=== PATIENT | male | born 1950 | race Caucasian/White ===

== ENCOUNTER 2019-09-24 15:10 | Emergency (ER) | payer BC, OTHER ==
[2019-09-24 15:26] VITALS: BMI 20.3
--- NOTE | 2019-09-24 16:39 | PDOC ---
History of Present Illness - General Chief Complaint: Alcohol intoxication Stated Complaint: INTOX Time Seen by Provider: 09/24/19 15:29 History Source: Patient, Friend - History of Present Illness Initial Comments: 09/24/19 16:32 HPI: 68yo M with history of ETOH abuse and depression transferred from [facility] for medical clearance due to intoxication and urinary and fecal incontinence. As per patient, he had 6 beers this morning around 10am. Patient states he has been binge drinking 6-8 beers per day for the last 2 months due to depression. He states that when he is drunk, he is too weak to go to the bathroom, so just goes in his couch. He states this does not occur so often and only when drunk. Patient states he had a herniated disc in his back, but denies back pain or parasthesias. Patient was confused about how/why he was in the hospital, so his friend was called for corroboration. The friend stated that he called [facility] for detox after finding the patient drunk this morning. PMHX: as in HPI PSHX: hernia repair Meds: klonapin 1mg BID, lexapro Allergies: penicillin Tob: denies Etoh: 6-8 beers per day Rec drugs: denies Lives alone in the [place]. ROS GENERAL/CONSTITUTIONAL: No fever or chills. HEAD, EYES, EARS, NOSE AND THROAT: No change in vision. No ear pain or discharge. No sore throat. CARDIOVASCULAR: No chest pain or shortness of breath RESPIRATORY: No cough, wheezing, or hemoptysis. GASTROINTESTINAL: No nausea, vomiting, diarrhea or constipation. GENITOURINARY: Urinary incontinence when intoxicated. No dysuria, frequency, hematuria. MUSCULOSKELETAL: No joint or muscle swelling or pain. No neck or back pain. SKIN: No rash NEUROLOGIC: No headache, vertigo, loss of consciousness, or change in strength/sensation. ENDOCRINE: No increased thirst. No abnormal weight change HEMATOLOGIC/LYMPHATIC: No anemia, easy bleeding, or history of blood clots. ALLERGIC/IMMUNOLOGIC: No hives or skin allergy. PE GENERAL: Awake, fully oriented, in no acute distress. Some confusion. HEAD: No signs of trauma, normocephalic, atraumatic EYES: PERRLA, EOMI, sclera anicteric, conjunctiva clear ENT: Auricles normal inspection, hearing grossly normal, nares patent, oropharynx clear without exudates. Moist mucosa NECK: Normal ROM, supple, no lymphadenopathy, JVD, or masses. No midline tenderness LUNGS: No distress, speaks full sentences, clear to auscultation bilaterally HEART: Regular rate and rhythm, normal S1 and S2, no murmurs, rubs or gallops, peripheral pulses normal and equal bilaterally. ABDOMEN: Soft, nontender, normoactive bowel sounds. No guarding, no rebound. No masses EXTREMITIES : Normal inspection, Normal range of motion, no edema. No clubbing or cyanosis. NEUROLOGICAL: Cranial nerves II through XII grossly intact. Normal speech, normal gait, no focal sensorimotor deficits SKIN: Warm, Dry, normal turgor, no rashes or lesions noted Assessment and Plan 68yo M with history of ETOH abuse and depression transferred from [facility] for medical clearance due to intoxication and urinary and fecal incontinence. Patient states his is too weak to get up and go to the bathroom, and this only occurs when intoxicated. Neuro exam benign and low suspicion for spinal or CARPET SEWER cause of incontinence. -Reasess when less intoxicated -Plan for transfer to [facility] once stable 09/24/19 20:36 Patient speaking in full sentences, walking in a straight line in his baseline limping gait, tollerating PO, AAOx3. Wants to go home. Safe discharge. Past History - Medical History Allergies/Adverse Reactions: Allergies Allergy/AdvReac Type Severity Reaction Status Date / Time Penicillins Allergy Severe Verified 09/24/19 13:58 Home Medications: Ambulatory Orders Clonazepam [Klonopin] 1 mg PO BID 09/24/19 Escitalopram Oxalate [Lexapro -] 10 mg PO DAILY 09/24/19 Anemia: No Asthma: No Cancer: No Cardiac Disorders: No CVA: No COPD: No CHF: No Dementia: No Diabetes: No GI Disorders: No Disorders: No HTN: No Hypercholesterolemia: No Kidney Stones: No Liver Disease: No Seizures: No Thyroid Disease: No - Surgical History Abdominal Surgery: No Appendectomy: No Cardiac Surgery: No Cholecystectomy: No Lung Surgery: No Neurologic Surgery: No Orthopedic Surgery: No - Reproductive History Testicular Surgery: No - Immunization History Td Vaccination: Yes - Psycho-Social/Smoking History Smoking Status: No Smoking History: Unknown if ever smoked Have you smoked in the past 12 months: No Number of Cigarettes Smoked Daily: 0 'Breaking Loose' booklet given: 05/11/14 - Substance Abuse Hx (Audit-C & DAST Scrn) How often the patient has a drink containing alcohol: 4 0r more times/wk Number of drinks the patient has on a typical day: 1 or 2 How often the patient has six or more drinks on one occasion: Monthly Score: In Men: 4 or > Positive; In Women: 3 or > Positive: 6 Screen Result (Pos requires Nsg. Audit-10AR): Positive In the last yr the pt used illegal drug/Rx for NonMed reason: No Score: Yes response is considered Positive: 0 Screen Result (Positive result requires Nsg. DAST-10): Negative *Physical Exam - Vital Signs Last Vital Signs Temp Pulse Resp BP Pulse Ox 98.4 F 95 H 20 160/94 100 09/24/19 15:23 09/24/19 15:23 09/24/19 15:23 09/24/19 15:23 09/24/19 15:23 Discharge - Discharge Information Problems reviewed: Yes Clinical Impression/Diagnosis: Alcohol dependence Qualifiers: Substance use status: with intoxication Complication of substance-induced condition: uncomplicated Qualified Code(s): F10.220 - Alcohol dependence with intoxication, uncomplicated Condition: Improved Disposition: HOME - Follow up/Referral Referrals: Pedrito Greenwood [Primary Care Provider] - - Patient Discharge Instructions Patient Printed Discharge Instructions: DI for Alcohol Abuse Additional Instructions: You were seen in the ED for alcohol intoxication and urinary and fecal inconti nence. You were likely incontinent because of intoxication. If you have inability to control your urine or bowels in the future, especially if it occurs when not intoxicated, or any other reason please call your PCP or return to the ED. Please see your primary doctor within the next week. Your workup is not complete until you see your doctor. Please go to [facility] rehab tomorrow. - Post Discharge Activity
--- NOTE | 2019-09-24 17:26 | PDOC ---
Attending Attestation - Resident Resident Name: Dylan Matute - ED Attending Attestation I have performed the following: I have examined & evaluated the patient, The case was reviewed & discussed with the resident, I agree w/resident's findings & plan, Exceptions are as noted - HPI HPI: 09/24/19 17:21 68 M with h/o etoh abuse presents to ED with intoxication. Pt's friend reports that pt was drinking with him at home today. Pt's friend called [facility] detox, and transportation was arranged to bring pt to [facility]. However, upon arrival, pt was deemed too intoxicated for admission to detox, and pt was referred to ED. Pt with no complaints in ED today. Denies falls/trauma. States he is not interested in detox at this time. Pt endorses depression but denies SI/HI/AVH. - Physicial Exam PE: 09/24/19 17:26 "GENERAL: Awake, alert, and fully oriented, in no acute distress. HEAD: No signs of trauma EYES: PERRLA, EOMI, sclera anicteric, conjunctiva clear ENT: Auricles normal inspection, hearing grossly normal, nares patent, oropharynx clear without exudates. Moist mucosa NECK: Nontender, no stepoffs, Normal ROM, supple, no lymphadenopathy, JVD, or masses LUNGS: Breath sounds equal, clear to auscultation bilaterally. No wheezes, and no crackles HEART: Regular rate and rhythm, normal S1 and S2, no murmurs, rubs or gallops ABDOMEN: Soft, nontender, normoactive bowel sounds. No guarding, no rebound. No masses EXTREMITIES: Normal range of motion, no edema. No clubbing or cyanosis. No cords, erythema, or tenderness NEUROLOGICAL: Cranial nerves II through XII intact. 5/5 strength and sensation in all extremities, Normal speech, normal gait, normal cerebellar function SKIN: Warm, Dry, normal turgor, no rashes or lesions noted. - Medical Decision Making 09/24/19 17:27 68 M with ETOH intoxication. No complaints at this time. No clinical evidence of traumatic injury. - Monitor in ED - Reassess when sober Discharge - Follow up/Referral Referrals: Pedrito Greenwood [Primary Care Provider] - - Patient Discharge Instructions - Post Discharge Activity
--- NOTE | 2019-09-24 17:31 | PDOC ---
Documentation entered by Vilma Mayorga SCRIBE, acting as scribe for Jef Acharya MD. Jef Acharya MD: This documentation has been prepared by the suryaibeMukesh Ana, SCRIBE, under my direction and personally reviewed by me in its entirety. I confirm that the documentation accurately reflects all work, treatment, procedures, and medical decision making performed by me. Attending Attestation - Resident Resident Name: GiovaniDylan - ED Attending Attestation I have performed the following: I have examined & evaluated the patient, The case was reviewed & discussed with the resident, I agree w/resident's findings & plan, Exceptions are as noted - HPI HPI: 09/24/19 17:21 Patient is a 68 year old male with a significant past medical history of ETOH abuse, previous hernia repair, and depression who presents to the ED, from [facility], with intoxication. Patient stated that due to his depression, he has been binge drinking 6 to 8 beers a day for the last few months and this morning at around 10:00am he had 6 beers. Patient's friend called [facility] this morning to bring pt in for detox after he found the patient drunk. Pt denies SI/HI/AVH. Patient denies: back pain and parathesias (had a herniated disc in back). Denies any recreational drug use. Allergies: Penicillin Patient lives alone. - Physicial Exam PE: 09/24/19 17:33 "GENERAL: Awake, alert, and fully oriented, in no acute distress. HEAD: No signs of trauma EYES: PERRLA, EOMI, sclera anicteric, conjunctiva clear ENT: Auricles normal inspection, hearing grossly normal, nares patent, oropharynx clear without exudates. Moist mucosa NECK: Nontender, no stepoffs, Normal ROM, supple, no lymphadenopathy, JVD, or masses LUNGS: Breath sounds equal, clear to auscultation bilaterally. No wheezes, and no crackles HEART: Regular rate and rhythm, normal S1 and S2, no murmurs, rubs or gallops ABDOMEN: Soft, nontender, normoactive bowel sounds. No guarding, no rebound. No masses EXTREMITIES: Normal range of motion, no edema. No clubbing or cyanosis. No cords, erythema, or tenderness NEUROLOGICAL: Cranial nerves II through XII intact. 5/5 strength and sensation in all extremities, Normal speech, normal gait, normal cerebellar function SKIN: Warm, Dry, normal turgor, no rashes or lesions noted. - Medical Decision Making 09/24/19 17:33 68 M with ETOH intoxication. No clinical evidence of traumatic injury. Pt denies SI/HI/AVH. - Reassess when sober Discharge - Discharge Information Problems reviewed: Yes Clinical Impression/Diagnosis: Alcohol dependence Qualifiers: Substance use status: with intoxication Complication of substance-induced cond ition: uncomplicated Qualified Code(s): F10.220 - Alcohol dependence with intoxication, uncomplicated Condition: Improved Disposition: HOME - Follow up/Referral Referrals: Pedrito Greenwood [Primary Care Provider] - - Patient Discharge Instructions Patient Printed Discharge Instructions: DI for Alcohol Abuse Additional Instructions: You were seen in the ED for alcohol intoxication and urinary and fecal incontinence. You were likely incontinent because of intoxication. If you have inability to control your urine or bowels in the future, especially if it occurs when not intoxicated, or any other reason please call your PCP or return to the ED. Please see your primary doctor within the next week. Your workup is not complete until you see your doctor. Please go to [facility] rehab tomorrow. - Post Discharge Activity
[2019-09-24 18:55] VITALS: BP 140/82; PULSE 100; TEMP 98.1
--- NOTE | 2019-09-24 20:49 | PDOC ---
*Physical Exam - Vital Signs Last Vital Signs Temp Pulse Resp BP Pulse Ox 98.1 F 100 H 18 140/82 99 09/24/19 18:54 09/24/19 18:54 09/24/19 18:54 09/24/19 18:54 09/24/19 18:54 Medical Decision Making - Medical Decision Making 09/24/19 20:47 Pt signed out to me. He was taken to [facility] earlier today for alcohol intox; there he was deemed too intox and he was sent to the ER. Here he has been resting and he is sober at this time and refuses to go to detox. Pt will be discharged as he is stable to go and clinically sober. Discharge - Discharge Information Problems reviewed: Yes Clinical Impression/Diagnosis: Alcohol dependence Qualifiers: Substance use status: with intoxication Complication of substance-induced condition: uncomplicated Qualified Code(s): F10.220 - Alcohol dependence with intoxication, uncomplicated Condition: Improved Disposition: HOME - Follow up/Referral Referrals: Pedrito Greenwood [Primary Care Provider] - - Patient Discharge Instructions Patient Printed Discharge Instructions: DI for Alcohol Abuse Additional Instructions: You were seen in the ED for alcohol intoxication and urinary and fecal incontinence. You were likely incontinent because of intoxication. If you have inability to control your urine or bowels in the future, especially if it occurs when not intoxicated, or any other reason please call your PCP or return to the ED. Please see your primary doctor within the next week. Your workup is not complete until you see your doctor. Please go to [facility] rehab tomorrow. - Post Discharge Activity
== END 2019-09-24 21:42 | disposition home or self-care (01) ==
LOC: JER 15:10
DX: F10.220 Alcohol dependence with intoxication, uncomplicated (principal)
CPT/HCPCS: 99283-25